=== PATIENT | female | born 1965 | race African-American/Black ===

== ENCOUNTER 2018-08-05 06:01 | Emergency (ER) | payer MEDICAID ==
[~2018-08-05] VITALS: Ht 177.8 cm; Wt 90.0 kg
[2018-08-05 08:09] LABS: BASOPHILS % 0.2 % (0.0-2.0); EOSINOPHILS % 0.3 % (0.0-5.0); HEMATOCRIT. 35.1 % (36.0-48.0); HEMOGLOBIN. 11.8 g/dL (12.0-16.0); LYMPHOCYTES % 10.9 % (20.0-50.0); MEAN CORPUSCULAR HEMOGLOBIN 35.1 pg (28.0-32.0); MEAN CORPUSCULAR VOLUME 104.4 fL (81.0-99.0); MEAN PLATELET VOLUME 7.9 fl (7.4-10.4); MONOCYTES % 9.5 % (2.0-8.0); NEUTROPHILS % 79.1 % (40.0-76.0); PLATELET 84 x1000/uL (130-400); RED BLOOD CELL COUNT 3.36 mill/uL (4.2-5.4)
[2018-08-05 08:14] LABS: CHLORIDE 106 mEq/L (98-107)
[2018-08-05 08:18] LABS: ETHANOL BLOOD < 10 mg/dL
[2018-08-05] MEDS ORDERED: ACETAMINOPHEN 500MG TABLET PO ONE (10:45)
[2018-08-05 11:04] LABS: CLARITY URINE CLOUDY (CLEAR); COLOR URINE YELLOW (YELLOW); KETONES URINE NEGATIVE (NEGATIVE); LEUKOCYTE ESTERASE URINE 1+ (NEGATIVE); NITRITE URINE POSITIVE (NEGATIVE); OCCULT BLOOD URINE TRACE (NEGATIVE); PROTEIN URINE TRACE (NEGATIVE); SPECIFIC GRAVITY URINE 1.016 (1.005-1.030); UROBILINOGEN URINE 0.2 E.U./dL (0.2-1.0)
[2018-08-05] MEDS ORDERED: CEFTRIAXONE 1 G PREMIX 50 ML IV ONE (11:15)
[2018-08-05 11:23] LABS: *BENZODIAZEPINES SCREEN URINE NEGATIVE (NEGATIVE); *COCAINE SCREEN URINE PRESUMTIVE POSITIVE (NEGATIVE); METHADONE URINE SCREEN NEGATIVE (NEGATIVE); OPIATES URINE SCREEN NEGATIVE (NEGATIVE)
[2018-08-05 11:24] LABS: *AMPHETAMINES SCREEN URINE NEGATIVE (NEGATIVE); *BARBITURATES SCREEN URINE NEGATIVE (NEGATIVE); CANNABINOID URINE SCREEN NEGATIVE (NEGATIVE); PHENCYCLIDINE URINE SCREEN NEGATIVE (NEGATIVE)
[2018-08-05 11:30] VITALS: BP 168/73
== END 2018-08-05 11:55 | disposition home or self-care (01) ==
LOC: ER 06:01
DX: R56.9 Unspecified convulsions (principal); N39.0 Urinary tract infection, site not specified; F14.10 Cocaine abuse, uncomplicated; R03.0 Elevated blood-pressure reading, without diagnosis of hypertension
CPT/HCPCS: 36415; 70450; 71045; 80053; 80305; 80320; 81003; 84484; 85025; 93005; 96365; 99284; J0696; Z7610; G0480